=== PATIENT | male | born 1950 | race African-American/Black ===

== ENCOUNTER 2016-10-05 14:31 | Emergency (ER) | payer MEDICARE, MEDICAID ==
[~2016-10-05] VITALS: Ht 182.9 cm; Wt 72.6 kg
[2016-10-05 14:40] VITALS: BP 130/80
[2016-10-05] MEDS ORDERED: Aspirin Baby 81mg ORAL ONE (14:45)
[2016-10-05] MEDS ORDERED: Nitroglycerin 2% oint pkt TOPIC ONE (14:45)
[2016-10-05] MEDS ORDERED: Famotidine 20 MG/ 2ML VIAL IVP ONE (14:45)
[2016-10-05] MEDS ORDERED: Morphine Sulfate 2mg/ml Inj IVP ONE (14:45)
--- NOTE | 2016-10-05 14:50 | Emergency Room Report ---
History of Present Illness General Chief Complaint: Chest Pain Source: Patient Present Illness [facility] The patient presents with chest pain and vomiting. The pain started half an hour before presentation. He's never had pain like this before. He ate something at [employer] and vomited. There is no blood. The pain was 9/10 initially but now is down to 7/10. The pain is epigastric radiates into his chest. He took a hydrocodone before coming in. He broke out in sweats when this began. Risk factors: No smoking, hypertension, diabetes. No fevers. No extrem pain, calf tenderness. Some dyspnea. No change in bowels. No dysuria. Allergies: Coded Allergies: No Known Allergies (Unverified , 10/05/16) Patient History Past Medical History: see triage record Past Surgical History: other - Prostate surgery Social History: Denies: alcohol use, smoking Social History Narrative from home Reviewed Nursing Documentation: PMH: Agreed, PSxH: Agreed Nursing Documentation-PMH Past Medical History: No History, Except For Review of Systems All Other Systems: negative except mentioned in HPI Physical Exam Vital Signs Date Time Temp Pulse Resp B/P Pulse Ox O2 Delivery O2 Flow Rate FiO2 10/05/16 14:37 95.7 69 23 147/81 100 Room Air Sp02 EP Interpretation: reviewed, normal General Appearance: GCS 15, moderate distress Head: normocephalic, atraumatic Eyes: bilateral eye PERRL, bilateral eye normal inspection ENT: moist mucus membranes Neck: supple Respiratory: lungs clear, normal breath sounds Cardiovascular #1: regular rate, rhythm, no edema Cardiovascular #2: 2+ radial (R) Gastrointestinal: normal inspection, non tender, no mass, non-distended, abnormal bowel sounds - decreased Musculoskeletal: back normal, gait/station normal, normal range of motion Neurologic: alert, oriented x3, grossly normal Psychiatric: anxious Skin: normal color, diaphoresis Procedures Critical Care Time Critical Care Time Total Critical Care Time: 30 min bedside evaluation and treatment excludes procedures (EKG). Reason for critical care: STEMI Possible complications: hypotension, hypertension, myocardial injury, shock, arrhythmias, metabolic acidosis, end organ damage. Interventions: aspirin, nitrates, morphine, and emergent transfer. Course: Patient initially presented with vomiting after eating at [employer]. An EKG was immediately ordered and showed a STEMI. [facility] and [facility] were contacted. Patient received aspirin, nitrates, and morphine. Unable to give metoprolol due to low HR. His pain was improved. He was accepted by [facility] after my direct discussion with the ED attending. [facility] Consultations: nursing staff, EMS, [facility] attending Performed by: Dr. Lobo Tolerated well condition = critical Medical Decision Making Diagnostic Impression: Primary Impression: Acute myocardial infarction Qualified Codes: I21.3 - ST elevation (STEMI) myocardial infarction of unspecified site Additional Impression: Vomiting Qualified Codes: R11.2 - Nausea with vomiting, unspecified ER Course The patient presents with epigastric and chest pain. He has no risk factors however by his age we need to consider possible acute myocardial infarction. His EKG is abnormal and therefore emergently sent to [facility] for reviewed by the room clerk. Patient was treated with aspirin nitrates and also morphine. Also given Pepcid and Zofran. [facility] accepts the patient Dr. Mata. Calling 911 for transfer. Patient improved. HR 52, unable to give metoprolol. No longer diaphoretic. Pain improved. Laboratory Tests Test 10/05/16 14:45 White Blood Count 4.2 K/UL (4.8-10.8) L Red Blood Count 4.93 M/UL (4.70-6.10) Hemoglobin 14.6 G/DL (14.2-18.0) Hematocrit 45.1 % (42.0-52.0) Mean Corpuscular Volume 92 FL (80-99) Mean Corpuscular Hemoglobin 29.5 PG (27.0-31.0) Mean Corpuscular Hemoglobin Concent 32.3 G/DL (32.0-36.0) Red Cell Distribution Width 13.1 % (11.6-14.8) Platelet Count 216 K/UL (150-450) Mean Platelet Volume 8.7 FL (6.5-10.1) Neutrophils (%) (Auto) % (45.0-75.0) Lymphocytes (%) (Auto) % (20.0-45.0) Monocytes (%) (Auto) % (1.0-10.0) Eosinophils (%) (Auto) % (0.0-3.0) Basophils (%) (Auto) % (0.0-2.0) Differential Total Cells Counted 100 Neutrophils % (Manual) 20 % (45-75) L Lymphocytes % (Manual) 66 % (20-45) H Monocytes % (Manual) 10 % (1-10) Eosinophils % (Manual) 3 % (0-3) Basophils % (Manual) 1 % (0-2) Band Neutrophils 0 % (0-8) Platelet Estimate Adequate Platelet Morphology Normal Red Blood Cell Morphology Normal Prothrombin Time 9.9 SEC (9.30-11.50) Prothrombin Time INR 1.0 (0.9-1.1) PTT 22 SEC (23-33) L Sodium Level 142 mEQ/L (135-145) Potassium Level 3.4 mEQ/L (3.4-4.9) Chloride Level 97 mEQ/L (98-107) L Carbon Dioxide Level 28 mEQ/L (20-30) Anion Gap 17 (5-15) H Blood Urea Nitrogen 16 mg/dL (7-23) Creatinine 1.2 mg/dL (0.7-1.2) Estimate Glomerular Filtration Rate > 60 mL/min (>60) Glucose Level 120 mg/dL (74-106) H Calcium Level 10.2 mg/dL (8.6-10.2) Total Bilirubin 0.3 mg/dL (0.0-1.2) Aspartate Amino Transferase (AST) 41 U/L (5-40) H Alanine Aminotransferase (ALT) 34 U/L (3-41) Alkaline Phosphatase 64 U/L (40-129) Total Creatine Kinase 370 U/L (38-174) H Troponin I < 0.30 ng/mL (<=0.30) Pro-B-Type Natriuretic Peptide 20 pg/mL (0-125) Total Protein 7.7 g/dL (6.6-8.7) Albumin 4.7 g/dL (3.5-5.2) Globulin 3.0 g/dL Albumin/Globulin Ratio 1.5 (1.0-2.7) EKG Diagnostic Results Rate: normal Rhythm: NSR ST Segments: other - ST elevation V2-6 ASA given to the pt in ED: Yes Rhythm Strip Diag. Results EP Interpretation: yes Rhythm: NSR, no PVC's, no ectopy Chest X-Ray Diagnostic Results EP Interpretation: Yes Findings: no consolidation, no effusion, no pneumothorax, no acute cardiopulmonary disease Number of Views: 1 Last Vital Signs Date Time Temp Pulse Resp B/P Pulse Ox O2 Delivery O2 Flow Rate FiO2 2/11/17 15:04 69 23 Room Air 10/05/16 15:04 95.7 147/81 100 Status: improved Disposition: XFER [facility] Condition: Serious Lalo Lobo M.D. Oct 05, 2016 14:50
[2016-10-05 14:56] LABS: MEAN CORPUSCULAR HEMOGLOBIN 29.5 PG (27.0-31.0); MEAN CORPUSCULAR HGB CONC 32.3 G/DL (32.0-36.0); MEAN CORPUSCULAR VOLUME 92 FL (80-99); MEAN PLATELET VOLUME 8.7 FL (6.5-10.1); PLATELET COUNT 216 K/UL (150-450); RED BLOOD COUNT 4.93 M/UL (4.70-6.10); RED CELL DISTRIBUTION WIDTH 13.1 % (11.6-14.8); WHITE BLOOD COUNT 4.2 K/UL (4.8-10.8)
[2016-10-05 15:00] VITALS: BP 140/90
[2016-10-05 15:04] VITALS: BP 147/81
[2016-10-05 15:08] LABS: PROTHROMBIN TIME 9.9 SEC (9.30-11.50)
[2016-10-05 15:12] LABS: TROPONIN I < 0.30 ng/mL (<=0.30)
[2016-10-05 15:14] LABS: ALANINE AMINOTRANSFERASE 34 U/L (3-41); ALBUMIN/GLOBULIN RATIO 1.5 (1.0-2.7); ANION GAP 17 (5-15); ASPARTATE AMINO TRANSFERASE 41 U/L (5-40); CALCIUM 10.2 mg/dL (8.6-10.2); CARBON DIOXIDE 28 mEQ/L (20-30); CHLORIDE 97 mEQ/L (98-107); CREATININE 1.2 mg/dL (0.7-1.2); GLOMERULAR FILTRATION RATE > 60 mL/min (>60); HEMOLYSIS 4; POTASSIUM 3.4 mEQ/L (3.4-4.9); SODIUM 142 mEQ/L (135-145); TOTAL PROTEIN 7.7 g/dL (6.6-8.7)
[2016-10-05 15:20] VITALS: BP 140/70
[2016-10-05 15:55] LABS: BASOPHILS % (MANUAL) 1 % (0-2); EOSINOPHILS % (MANUAL) 3 % (0-3); LYMPHOCYTES % (MANUAL) 66 % (20-45); NEUTROPHILS % (MANUAL) 20 % (45-75); TOTAL CELLS COUNTED 100
[2016-10-05 15:56] LABS: BAND NEUTROPHILS % (MANUAL) 0 % (0-8); PLATELET ESTIMATE ADEQUATE; PLATELET MORPHOLOGY NORMAL
--- NOTE | 2016-10-06 21:13 | Cardiology Report ---
APPROVED REPORT EKG Measurement Heart [id number] IL [id number] [id number] Sinus rhythm with premature atrial complexes Moderate voltage criteria for LVH, may be normal variant ST elevation, consider early repolarization, pericarditis, or injury Abnormal ECG
--- NOTE | 2016-10-07 11:03 | Diagnostic Imaging Report ---
Clinical history: Acute chest pain. Technique: Portable AP chest radiograph was obtained. Comparison: None Findings: Mild ill-defined densities in the lower lungs may represent atelectasis or scarring. There is no pneumonia or pulmonary edema. There is no pleural effusion or pneumothorax. The cardiac and mediastinal silhouettes are normal in appearance. The bony thorax is unremarkable. Impression: Suspected mild basilar atelectasis or scarring. No radiographic evidence of acute cardiopulmonary process.
== END 2016-10-05 15:21 | disposition short-term general hospital (02) ==
LOC: EMR 14:55
DX: I21.29 ST elevation (STEMI) myocardial infarction involving other sites (principal); R11.10 Vomiting, unspecified
CPT/HCPCS: 36415; 71010; 80053; 82550; 83880; 84484; 85007; 85025; 85610; 85730; 93005; 96374; 96375; 99291; J2270; J2405; S0028

== ENCOUNTER 2019-04-03 04:37 | Inpatient (IN) | payer OTHER, MEDICAID ==
[2019-04-03] VITALS (19 sets, daily range): BP systolic 102–166; BP diastolic 62–98
[~2019-04-03] VITALS: Ht 180.3 cm; Wt 68.5 kg
--- NOTE | 2019-04-03 04:33 | NUR ---
ED Nurse Note: pt biba R 68 via daniel for C/O CP 8/10 and headache. bp 164/90, hr 98, r 22, t 98.3. pt is alert x4.
[2019-04-03] MEDS ORDERED: Morphine Sulfate 4mg/ml Inj (IV USE ONLY) IVP ONE ×2 (04:45→06:15)
--- NOTE | 2019-04-03 04:52 | Emergency Room Report ---
History of Present Illness General Chief Complaint: Chest Pain Source: Patient Present Illness [facility] Patient presents with complaints of chest pain left midsternal onset 11:00 at night Patient reports that he was walking Outside when he started feeling the pain and presents by paramedics Has very minimal relief after nitroglycerin by paramedics Denies any vomiting or diarrhea denies any fevers or chills denies any change with position or exertion on review of medical records patient was here in 2017 Appears to have been transferred to [facility] Patient reports that there was no intervention performed At that facility Allergies: Coded Allergies: No Known Allergies (Unverified , 10/05/16) Patient History Past Medical History: see triage record Pertinent Family History: none Reviewed Nursing Documentation: PMH: Agreed; PSxH: Agreed Nursing Documentation-PMH Past Medical History: No Stated History Review of Systems All Other Systems: negative except mentioned in HPI Physical Exam Vital Signs Date Time Temp Pulse Resp B/P (MAP) Pulse Ox O2 Delivery O2 Flow Rate FiO2 04/03/19 04:28 98.6 60 18 168/93 (118) 98 Room Air 04/03/19 04:38 99 Sp02 EP Interpretation: reviewed, normal General Appearance: well appearing, mild distress - In acute pain Head: normocephalic, atraumatic Eyes: bilateral eye PERRL, bilateral eye EOMI ENT: hearing grossly normal, normal pharynx, TMs + canals normal, uvula midline Neck: full range of motion, supple, no meningismus, no bony tend Respiratory: lungs clear, normal breath sounds, no rhonchi, no respiratory distress, no retraction, no accessory muscle use Cardiovascular #1: normal peripheral pulses, regular rate, rhythm, no edema, no gallop, no JVD, no murmur Gastrointestinal: normal bowel sounds, non tender, soft, no mass, no organomegaly, non-distended, no guarding, no hernia, no pulsatile mass, no rebound Genitourinary: no CVA tenderness Musculoskeletal: normal inspection Neurologic: oriented x3, responsive, sign erector and repairer III-XII nml as tested, motor strength/ tone normal, sensory intact Psychiatric: mood/affect normal Skin: no rash Lymphatic: normal inspection, no adenopathy Medical Decision Making Diagnostic Impression: Primary Impression: ACS (acute coronary syndrome) ER Course Patient is a fairly complex patient with multiple differential to consideration including but not limited to cardiac cardiopulmonary and vascular emergencies EKG Diagnostic Results Rate: normal Rhythm: NSR ST Segments: other - Nonspecific ST changes LVH, EKG compared to 2017 looks very similar Rhythm Strip Diag. Results EP Interpretation: yes Rate: 60 Rhythm: NSR, no PVC's, no ectopy Last Vital Signs Date Time Temp Pulse Resp B/P (MAP) Pulse Ox O2 Delivery O2 Flow Rate FiO2 04/03/19 04:38 55 25 Room Air 99 04/03/19 04:38 98.6 166/83 98 Status: improved Disposition: ADMITTED INPATIENT Condition: Serious Kelton Pineda DO Apr 03, 2019 04:52
--- NOTE | 2019-04-03 04:57 | NUR ---
ED Nurse Note: all due meds given, pt states pain 5/10 after morphine, BP 166/83. p 54, rr 18, sp02 100% in RA.
[2019-04-03 05:21] LABS: BASOPHILS % (AUTO) 1.4 % (0.0-2.0); EOSINOPHILS % (AUTO) 4.6 % (0.0-3.0); HEMATOCRIT 46.3 % (42.0-52.0); HEMOGLOBIN 14.9 G/DL (14.2-18.0); LYMPHOCYTES % (AUTO) 29.7 % (20.0-45.0); MEAN CORPUSCULAR VOLUME 93 FL (80-99); MONOCYTES % (AUTO) 7.9 % (1.0-10.0); NEUTROPHILS % (AUTO) 56.4 % (45.0-75.0); PLATELET COUNT 169 K/UL (150-450); RED BLOOD COUNT 4.96 M/UL (4.70-6.10); RED CELL DISTRIBUTION WIDTH 12.6 % (11.6-14.8); WHITE BLOOD COUNT 3.6 K/UL (4.8-10.8)
[2019-04-03 05:35] LABS: INR 0.9 (0.9-1.1)
--- NOTE | 2019-04-03 05:44 | Diagnostic Imaging Report ---
EXAM: XR Chest, 1 View CLINICAL HISTORY: CP TECHNIQUE: Frontal view of the chest. COMPARISON: 10/05/2016 FINDINGS: Lungs: Unremarkable. No consolidation. Pleural space: Unremarkable. No pneumothorax. Heart: Unremarkable. No cardiomegaly. Mediastinum: Unremarkable. Bones/joints: Unremarkable. IMPRESSION: Normal chest x-ray.
[2019-04-03] MEDS ORDERED: Heparin 5000 units/ml inj IV ONE (05:45)
[2019-04-03] MEDS ORDERED: Heparin 25,000u/D5W 500ml 500 ML IV SCH ×3 (05:45→09:06)
[2019-04-03 05:46] LABS: ALANINE AMINOTRANSFERASE 53 U/L (12-78); ALBUMIN 4.1 G/DL (3.4-5.0); ALBUMIN/GLOBULIN RATIO 1.1 (1.0-2.7); ALKALINE PHOSPHATASE 88 U/L (46-116); ANION GAP 2 mmol/L (5-15); ASPARTATE AMINO TRANSFERASE 53 U/L (15-37); BILIRUBIN,TOTAL 0.3 MG/DL (0.2-1.0); BLOOD UREA NITROGEN 14 mg/dL (7-18); CALCIUM 9.6 MG/DL (8.5-10.1); CARBON DIOXIDE 34 MMOL/L (21-32); CHLORIDE 103 MMOL/L (98-107); CKMB 9.5 NG/ML (0.0-3.6); CREATINE KINASE 306 U/L (26-308); CREATININE 1.3 MG/DL (0.55-1.30); POTASSIUM 4.3 MMOL/L (3.5-5.1); SODIUM 138 MMOL/L (136-145)
[2019-04-03] MEDS ORDERED: CYCLOBENZAPRINE10 MG ORAL (06:15)
[2019-04-03] MEDS ORDERED: Nitroglycerin 2% oint pkt TOPIC ONE (06:30)
--- NOTE | 2019-04-03 06:45 | NUR ---
ED Nurse Note: pt was brought up to ICU (246-C) accompanied by RN and analytical laboratory technician via gurprashant in stable condition. Report given to SHALINI stewart. Belonging list signed.
--- NOTE | 2019-04-03 06:50 | NUR ---
NURSE NOTES: Admitting pt from ER to ICU with dx of chest pain, elevate troponin. Report given by SHALINI Spencer. Pt's AOx4, in no acute distress at this time. Denies chest pain at this time, Nitro cream applied on right upper chest. On 2L/NC O2 sat 100%. 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 R 24. Pt's continent bladder and bowel. Noted Left AC 20G, and Left FA 20G, running Heparin at 12 units/kg/hr started at 06:10, also had 5000 units bolus at the same time. Call light within reach. Bed in low and locked position. HOB kept elevated. Will continue to monitor.
--- NOTE | 2019-04-03 07:30 | NUR ---
NURSE NOTES: Received the patient from SHALINI Wu. Patient is awake, alert and oriented x4, resting in bed. Denies chest pain or SOB. On 2L O2 via NC, O2 sat 100%. Breathing even and unlabored. SB HR 40s to SR noted on the manager monitoring. Patient kept NPO. Left AC 20G and left forearm 20G intact, asymptomatic, running heparin gtt at 12units/kg/hr. No s/sx of bleeding noted. Bed in lowest position, locked, side rails upx2. Call light within reach. Will continue to monitor.
--- NOTE | 2019-04-03 07:45 | NUR ---
NURSE NOTES: Contacted Dr. Castaneda for admitting orders. new orders noted and carried out.
[2019-04-03] MEDS ORDERED: Enalaprilat 2.5mg/2ml Inj IV PRN (08:00)
[2019-04-03] MEDS ORDERED: Morphine Sulfate 4mg/ml Inj (IV USE ONLY) IVP PRN (08:04)
[2019-04-03] MEDS ORDERED: NORCO 10-325 T1 EACH ORAL (08:13)
--- NOTE | 2019-04-03 09:00 | NUR ---
NURSE NOTES: Patient seen by Dr. Castaneda. No new orders at this time. keep the patient npo
--- NOTE | 2019-04-03 09:30 | NUR ---
NURSE NOTES: 2D echo completed.
[2019-04-03] MEDS: Cyclobenzaprine 10mg Tab ORAL SCH ×2 (09:41→18:19)
[2019-04-03] MEDS: D5NS 1,000 ML IV SCH (09:42)
--- NOTE | 2019-04-03 10:00 | NUR ---
NURSE NOTES: Dr. Paez at bedside to assess the patient. Okay to start diet.
[2019-04-03] MEDS ORDERED: Ipratropium 0.02% Inh Soln 2.5ml UD HHN PRN (10:15)
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
--- NOTE | 2019-04-03 12:00 | NUR ---
NURSE NOTES: Patient having lunch in bed. No acute distress noted. VSS. Denies SOB or CP.
[2019-04-03] MEDS ORDERED: Heparin 5000 units/ml inj IV SCH (12:26)
[2019-04-03] MEDS: Nitroglycerin 2% oint pkt TOPIC SCH ×2 (12:26→18:20)
[2019-04-03] MEDS: Heparin 25,000u/D5W 500ml 500 ML IV SCH (12:49)
--- NOTE | 2019-04-03 12:57 | History & Physical ---
History and Physical History & Physicial Seen and Examined. Dictation completed Beulah Castaneda MD Apr 03, 2019 12:57
--- NOTE | 2019-04-03 14:00 | NUR ---
NURSE NOTES: Patient asleep, easily arousable. Heparin gtt running at 14unit/kg/hr. No s/sx of bleeding noted.
--- NOTE | 2019-04-03 14:15 | NUR ---
NURSE NOTES: Patient seen by Dr. Watkins. Stat VD and VQ scan ordered. NM department made aware of stat order.
--- NOTE | 2019-04-03 14:45 | NUR ---
NURSE NOTES: Called Dr. Paez regarding elevated trop level, left a message.
--- NOTE | 2019-04-03 16:00 | NUR ---
NURSE NOTES: patient information forwarded to casework supervisor, Emy, for possible transfer.
--- NOTE | 2019-04-03 16:50 | NUR ---
NURSE NOTES: Patient off the unit for VQ scan, on a wearing apparel presser. VSS.
--- NOTE | 2019-04-03 18:15 | NUR ---
NURSE NOTES: patient back in pt's room. VQ scan completed. patient tolerated well. VSS. patient resting in bed comfortably. on 2L O2 via NC.
--- NOTE | 2019-04-03 19:12 | NUR ---
HAND-OFF: Report given to SHALINI Morgan. Addendum: 04/03/19 at 1916 by SURAJ JASSO RN endorsed to follow with Dr. Paez regarding elevated trop level.
--- NOTE | 2019-04-03 19:30 | NUR ---
NURSE NOTES: Received pt in no acute distress, AAOX4; currently denies any Chest pains, denies SOB. Pt had just finished eating dinner, consumed 100%. No edema, pulses strong and equal, NSR on the monitor, BP stable, afebrile. PIV site on LFA patent; Heparin gtt continues at 14units/kg/h. Awaiting results of VQ scan, PTT. Called Dr Paez re; Troponin of 2.768 from 1400H draw. Awaiting response.Will continue to monitor
--- NOTE | 2019-04-03 19:49 | Diagnostic Imaging Report ---
EXAM: NM Lung Perfusion and Ventilation Scan CLINICAL HISTORY: CP TECHNIQUE: Nuclear Medicine ventilation and perfusion images of the lungs were obtained in multiple projections following radiopharmaceutical inhalation followed by injection of Tc99m MAA. COMPARISON: No relevant prior studies available. FINDINGS: Ventilation: Unremarkable. No ventilation defects. Perfusion: Unremarkable. No perfusion defects. IMPRESSION: No findings to suggest pulmonary embolism.
--- NOTE | 2019-04-03 20:00 | NUR ---
NURSE NOTES: PTT 78, no change in current Heparin dose; ordered next PTT @ 0400 04/04. Vascular chemical processing laborer here and doing duplex studies of BLE. VQ scan reports negative findings.
--- NOTE | 2019-04-03 21:27 | Diagnostic Imaging Report ---
EXAM: US Duplex Bilateral Lower Extremity Veins CLINICAL HISTORY: THROM TECHNIQUE: Real-time duplex ultrasound scan of the bilateral lower extremity veins integrating B-mode two-dimensional vascular structure, Doppler spectral analysis, color flow Doppler imaging and compression. COMPARISON: No relevant prior studies available. FINDINGS: Right deep veins: No DVT in the right common femoral, femoral, proximal deep femoral or popliteal veins. The veins demonstrate normal color flow, are normally compressible, with normal phasic flow and/or augmentation response. Right superficial veins: No thrombus in the visualized right great saphenous vein. Left deep veins: No DVT in the left common femoral, femoral, proximal deep femoral or popliteal veins. The veins demonstrate normal color flow, are normally compressible, with normal phasic flow and/or augmentation response. Left superficial veins: No thrombus in the visualized left great saphenous vein. Soft tissues: No popliteal cyst. IMPRESSION: No DVT bilaterally.
--- NOTE | 2019-04-03 22:00 | NUR ---
NURSE NOTES: Dr Paez called and gave orders to satrt pt on Coreg 3.125po q 12h, 1st dose to be given now. Lab reported Troponin of 3.020. Ordered a repeat troponin in AM
--- NOTE | 2019-04-03 23:00 | NUR ---
NURSE NOTES: c/o difficulty urinating. Bladder scanned, 387mls urine in the bladder. Assisted pt to stand up on the side of the bed to void. Able to pass urine, 400mls.
[2019-04-04] VITALS (17 sets, daily range): BP systolic 103–134; BP diastolic 63–82
--- NOTE | 2019-04-04 | History and Physical Report ---
DATE OF ADMISSION: 04/03/2019 SOURCE OF INFORMATION: The patient and EMR. HISTORY OF PRESENT ILLNESS: The patient is a pleasant 68-year-old male with an unremarkable history of cardiovascular disease. The patient presented with worsening of the chest pain radiation to the left shoulder. The patient denies any loss of consciousness. The patient reported that the pain is constant. The patient denies any lightheadedness. Denies any diarrhea, constipation, or nausea. REVIEW OF SYSTEMS: All 12 elements of review of systems reviewed. Pertinent positives and negatives as above. ALLERGIES: NKDA. SOCIAL HISTORY: Positive for tobacco use. There is no history of illicit drug abuse. The patient reportedly lives with a family friend. CURRENT MEDICATIONS: Morphine, [place], Vasotec, and aspirin. PAST SURGICAL HISTORY: Denies any major history. IMAGING: Chest x-ray dated 04/03/2019 is normal. LABORATORY DATA: Dated 04/03/2019 showed WBC 3.6, hemoglobin 14.9, and platelets 169,000. Sodium 138, BUN 14. AST of 33. Troponin of 0.7. Serum toxicology is positive for opiates and cocaine. PHYSICAL EXAMINATION: VITAL SIGNS: Blood pressure 170/80, temperature 98.2, pulse oximetry 98% on room, respiratory rate 18, and pulse rate of 50-60. HEAD AND NECK: Atraumatic and normocephalic. CHEST: Clear to auscultation. HEART: S1 and S2. Regular rate and rhythm. ABDOMEN: Soft. No organomegaly. MUSCULOSKELETAL: No gross focal motor deficit. NEUROLOGY: Awake, alert, and oriented x3. ASSESSMENT: 1. Non-ST myocardial infarction. 2. Polysubstance abuse. 3. Abnormal LFT. 4. GI and DVT prophylaxis. PLAN OF CARE: I will check for the liver function tests. I will check for the hepatitis panel. I agree with the current IV heparin treatment. Cardiology, Dr. Hendricks, is consulted. Pulmonary, Dr. Miller. Beulah Castaneda M.D. DR: EVANGELISTA JOB#: [id number] CC:
--- NOTE | 2019-04-04 01:00 | NUR ---
NURSE NOTES: Sleeping. VSS, no distress.
[2019-04-04] MEDS: D5NS 1,000 ML IV SCH ×3 (01:26→14:00)
--- NOTE | 2019-04-04 03:00 | NUR ---
NURSE NOTES: Voided via urinal. Denies chest pains, denies SOB. PIV sites intact. No bleeding noted; Heparin gtt continues at 14units/kg/h
--- NOTE | 2019-04-04 05:00 | NUR ---
NURSE NOTES: c/o severe low back pain 06/03. Pt grimacing, moaning, sweating. Denies chest pains. [place] 1 tab given po
[2019-04-04] MEDS: HYDROcodone/Acetamin 10/325 tab ORAL PRN ×3 (05:10→20:56)
[2019-04-04] MEDS: Heparin 25,000u/D5W 500ml 500 ML IV SCH (05:28)
[2019-04-04] MEDS: Nitroglycerin 2% oint pkt TOPIC SCH ×3 (05:30→18:08)
--- NOTE | 2019-04-04 05:40 | NUR ---
NURSE NOTES: Still no relief from [place]. Still c/o severe low back pain, spasms. Pt sweating and trashing on bed. Morphine 3 mg IVP given
--- NOTE | 2019-04-04 06:13 | NUR ---
NURSE NOTES: Pt's pain level 3/10 post Morphine. Denies chest pains. BP stable, NSR. Heparin gtt still at 14units/kg/h. Awaiting PTT result
[2019-04-04 06:37] LABS: BASOPHILS % (AUTO) 1.2 % (0.0-2.0); EOSINOPHILS % (AUTO) 5.9 % (0.0-3.0); HEMATOCRIT 41.2 % (42.0-52.0); HEMOGLOBIN 13.3 G/DL (14.2-18.0); MEAN CORPUSCULAR VOLUME 93 FL (80-99); PLATELET COUNT 149 K/UL (150-450); RED BLOOD COUNT 4.42 M/UL (4.70-6.10); RED CELL DISTRIBUTION WIDTH 12.8 % (11.6-14.8); WHITE BLOOD COUNT 3.8 K/UL (4.8-10.8)
--- NOTE | 2019-04-04 07:03 | NUR ---
HAND-OFF: Report given to SHALINI Martin.
--- NOTE | 2019-04-04 07:20 | NUR ---
NURSE NOTES: Received the patient from SHALINI Morgan. Patient is awake, alert and oriented x4, resting in bed. Denies chest pain or SOB. On 2L O2 via NC, O2 sat 100%. Breathing even and unlabored. SR noted on the surveillance system monitor. BP 122/76. Left AC 20G and left forearm 20G intact, asymptomatic, running heparin gtt at 14 units/kg/hr. No s/sx of bleeding noted. Bed in lowest position, locked, side rails upx2. Call light within reach. Will continue to monitor.
[2019-04-04 07:43] LABS: ANION GAP 4 mmol/L (5-15); BLOOD UREA NITROGEN 11 mg/dL (7-18); CALCIUM 9.1 MG/DL (8.5-10.1); CARBON DIOXIDE 30 MMOL/L (21-32); CHLORIDE 106 MMOL/L (98-107); CHOLESTEROL 201 MG/DL (< 200); CREATININE 1.2 MG/DL (0.55-1.30); HDL CHOLESTEROL 65 MG/DL (40-60); POTASSIUM 3.5 MMOL/L (3.5-5.1); SODIUM 140 MMOL/L (136-145); TRIGLYCERIDES 89 MG/DL (30-150)
--- NOTE | 2019-04-04 08:10 | NUR ---
NURSE NOTES: Left a message to JAMES Manley regarding transfer, awaiting for call back.
[2019-04-04] MEDS: Cyclobenzaprine 10mg Tab ORAL SCH ×2 (08:29→18:08)
--- NOTE | 2019-04-04 08:30 | NUR ---
NURSE NOTES: Spoke with JAMES Manley working on pt's transfer.
[2019-04-04] MEDS ORDERED: Aspirin Baby 81mg ORAL SCH (09:00)
--- NOTE | 2019-04-04 09:23 | NUR ---
NURSE NOTES: Patient watching TV in bed. VSS. no acute distress noted.
--- NOTE | 2019-04-04 10:00 | NUR ---
NURSE NOTES: Per JAMES, a nurse to call to nursing station regarding transferring for a cardiac cath. reference #[id number]
--- NOTE | 2019-04-04 11:15 | NUR ---
NURSE NOTES: EKG performed, filed in pt's chart.
--- NOTE | 2019-04-04 12:56 | NUR ---
NURSE NOTES: Patient is awake, resting in bed comfortably. No c/o pain or SOB at this time. VSS. On 2L O2 via NC.
--- NOTE | 2019-04-04 14:15 | NUR ---
NURSE NOTES: Dr. Paez at bedside to assess the patient. Notified MD that CM working on transfer, pending. MD made aware of EKG result. Okay to transfer the patient to tele.
[2019-04-04] MEDS ORDERED: D5NS 1000ml IV ONE (15:17)
--- NOTE | 2019-04-04 15:25 | NUR ---
TRANSFER TO FLOOR: Patient transferred to [facility]. Report given to SHALINI Rodriguez. Belongings given to primary nurse.
--- NOTE | 2019-04-04 15:28 | NUR ---
NURSE NOTES: Received transfer from ICU and got bedside report from Maritza Cook RN. Pt. in bed, awake, a/o x 4. No sign of distress noted. On O2 at 2LPM via NC. Denies pain at present. Pre-medicated with norco prior to transfer. Cont. on Heparin drip with rate 14u/kg/hr. No s/sx of bleeding noted. IV site at left AC #20g. and left FA #20g. in placed patent/intact. Pleasant and cooperative. Will cont. to monitor.
[2019-04-04] MEDS ORDERED: Heparin 25,000u/D5W 500ml 500 ML IV SCH (15:35)
[2019-04-04] MEDS ORDERED: Ipratropium 0.02% Inh Soln 2.5ml UD HHN PRN ×2 (16:00)
[2019-04-04] MEDS ORDERED: HYDROcodone/Acetamin 10/325 tab ORAL PRN (16:00)
[2019-04-04] MEDS ORDERED: Cyclobenzaprine 10mg Tab ORAL SCH (18:00)
[2019-04-04] MEDS ORDERED: Nitroglycerin 2% oint pkt TOPIC SCH (18:00)
--- NOTE | 2019-04-04 19:16 | General Progress Note ---
Assessment/Plan Assessment/Plan: S: I am doing ok O: Denies CP, SOB. seems comfortable PHYSICAL EXAMINATION:HEAD AND NECK: Atraumatic and normocephalic. CHEST: Clear to auscultation.HEART: S1 and S2. Regular rate and rhythm. ABDOMEN: Soft. No organomegaly.MUSCULOSKELETAL: No gross focal motor deficit. NEUROLOGY: Awake, alert, and oriented x3. Lab: dated April 04 reviwed Meds: reviewed and reconciled ASSESSMENT: 1. Non-ST myocardial infarction. 2. Polysubstance abuse. 3. Abnormal LFT. 4. Hyperlipidemia 4. GI and DVT prophylaxis. Plan; Current cardiology management Subjective Allergies: Coded Allergies: No Known Allergies (Unverified , 10/05/16) Objective Last 24 Hour Vital Signs Date Time Temp Pulse Resp B/P (MAP) Pulse Ox O2 Delivery O2 Flow Rate FiO2 04/04/19 18:08 124/68 04/04/19 16:00 Nasal Cannula 2.0 04/04/19 15:56 65 04/04/19 15:07 69 124/68 04/04/19 15:00 64 14 124/68 (86) 98 04/04/19 14:00 69 21 126/63 (84) 100 04/04/19 13:00 98.3 71 16 132/71 (91) 99 04/04/19 12:00 Nasal Cannula 2.0 04/04/19 12:00 72 04/04/19 12:00 63 16 128/82 (97) 99 04/04/19 11:09 126/75 04/04/19 11:00 60 13 126/75 (92) 99 04/04/19 10:00 64 14 127/72 (90) 99 04/04/19 09:00 69 15 132/65 (87) 100 04/04/19 08:28 75 134/73 04/04/19 08:00 98.4 75 15 134/73 (93) 99 04/04/19 08:00 Nasal Cannula 2.0 04/04/19 08:00 72 04/04/19 07:00 61 13 122/76 (91) 99 04/04/19 06:30 100 Nasal Cannula 2.0 28 04/04/19 06:30 61 16 98 Nasal Cannula 2.0 28 04/04/19 06:00 98.5 57 14 131/70 (90) 100 04/04/19 05:30 133/90 04/04/19 05:00 72 24 106/79 (88) 100 04/04/19 04:00 63 04/04/19 04:00 64 14 130/73 (92) 99 04/04/19 04:00 Nasal Cannula 2.0 04/04/19 03:00 67 18 132/69 (90) 99 04/04/19 02:00 75 25 114/77 (89) 99 04/04/19 01:00 64 13 103/66 (78) 98 04/04/19 00:00 Nasal Cannula 2.0 04/04/19 00:00 98.6 62 14 110/74 (86) 99 04/03/19 23:00 64 15 113/65 (81) 98 04/03/19 22:11 66 114/65 04/03/19 22:00 64 14 114/65 (81) 99 04/03/19 21:00 68 14 118/72 (87) 99 04/03/19 20:00 65 04/03/19 20:00 Nasal Cannula 2.0 04/03/19 20:00 98.4 73 13 115/67 (83) 99 Intake and Output 04/03/19 04/04/19 18:59 06:59 Intake Total 904.361 ml 2144.04 ml Output Total 760 ml 650 ml Balance 144.361 ml 1494.04 ml Intake Oral 120 ml 960 ml IV Total 784.361 ml 1184.04 ml Output Urine Total 760 ml 650 ml # Voids 1 Laboratory Tests 04/03/19 21:32: Troponin I 3.020H 04/04/19 06:00: Troponin I 2.207H, White Blood Count 3.8L, Red Blood Count 4.42L, Hemoglobin 13.3L, Hematocrit 41.2L, Mean Corpuscular Volume 93, Mean Corpuscular Hemoglobin 30.0, Mean Corpuscular Hemoglobin Concent 32.2, Red Cell Distribution Width 12.8, Platelet Count 149L, Mean Platelet Volume 7.4, Neutrophils (%) (Auto) 45.0, Lymphocytes (%) (Auto) 40.0, Monocytes (%) (Auto) 8.0, Eosinophils (%) (Auto) 5.9H, Basophils (%) (Auto) 1.2, Activated Partial Thromboplast Time 73H, Sodium Level 140, Potassium Level 3.5, Chloride Level 106 , Carbon Dioxide Level 30, Anion Gap 4L, Blood Urea Nitrogen 11, Creatinine 1.2 , Estimat Glomerular Filtration Rate > 60, Glucose Level 119H, Hemoglobin A1c 6.0, Calcium Level 9.1, Triglycerides Level 89, Cholesterol Level 201H, LDL Cholesterol 121H, HDL Cholesterol 65H, Cholesterol/HDL Ratio 3.1L, Thyroid Stimulating Hormone (TSH) 2.013 Height (Feet): 5 Height (Inches): 11.00 Weight (Pounds): 146 Beulah Castaneda MD Apr 04, 2019 19:16
--- NOTE | 2019-04-04 19:52 | NUR ---
HAND-OFF: Report given to Rafael LOYA. Pt. remain stable.
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
[2019-04-05] VITALS: BP 138/75
--- NOTE | 2019-04-05 03:30 | Progress Note ---
DATE: 04/04/2019 CARDIOLOGY PROGRESS NOTE SUBJECTIVE: The patient has no chest pain today. Troponin levels peaked above 3. EKG reviewed today revealed sinus rhythm with nonspecific T-wave changes. No change from admission. The patient was made aware of his positive cocaine screen. He denied use of cocaine yesterday; however, today, he admits to using the drug. OBJECTIVE: VITAL SIGNS: Blood pressure is somewhat labile at times. Heart rates in the 50s and 60s with sinus rhythm. LUNGS: Clear. CARDIAC: Regular. Normal S1 and S2 with a fourth heart sound. ABDOMEN: Soft. No edema. IMAGING: Echocardiogram revealed normal ejection fraction with mild concentric hypertrophy. IMPRESSION: 1. Acute [id number]-[id number] myocardial infarction, probably precipitated by cocaine and associated vasospasm. 2. Labile hypertension. 3. Diastolic dysfunction with compensated congestive heart failure. 4. Depression. 5. Sinus bradycardia. 6. Cocaine abuse. PLAN: 1. Continue nitrates. 2. Add calcium blockers. 3. Avoid beta-blockers. 4. Maintain full anticoagulation and anti-platelet therapy with aspirin. 5. Discharge planning to a higher level of care for coronary angiography. Antonella Harding JOB#: [id number] CC:
[2019-04-05 04:00] VITALS: BP 141/80
[2019-04-05] MEDS: HYDROcodone/Acetamin 10/325 tab ORAL PRN ×3 (05:13→23:37)
[2019-04-05] MEDS: Heparin 25,000u/D5W 500ml 500 ML IV SCH (05:44)
[2019-04-05] MEDS: Nitroglycerin 2% oint pkt TOPIC SCH ×3 (05:58→17:25)
--- NOTE | 2019-04-05 07:35 | NUR ---
HAND-OFF: Report given to SHALINI Thacker. Endorsed plan of care.
[2019-04-05 08:00] VITALS: BP 143/90
--- NOTE | 2019-04-05 08:18 | NUR ---
NURSE NOTES: Received patient momo Hall Rn. Patient AAOx4 eating his breakfast. No c/o pain or discomfort at this time. Heparin infusing @ 14 Units/kg/hr = 18.67 ml/hr via right wrist #20. No active bleeding noted. Patient PTT 66,therapeutic this am. No c/o pain or discomfort at this time. Will monitor patient.
[2019-04-05] MEDS: Cyclobenzaprine 10mg Tab ORAL SCH ×2 (08:30→17:25)
[2019-04-05] MEDS: Aspirin Baby 81mg ORAL SCH (08:30)
[2019-04-05] MEDS ORDERED: Aspirin Baby 81mg ORAL SCH (09:00)
--- NOTE | 2019-04-05 09:53 | NUR ---
*-* INSURANCE *-* ALL AVAILABLE CLINICALS HAVE BEEN FAXED TO: [employer] ATTN: ARNOLDO P:[phone] F: [phone] REF # [id number]
--- NOTE | 2019-04-05 10:34 | Consultation ---
History of Present Illness General Chief Complaint: Chest Pain Present Illness Allergies: Coded Allergies: No Known Allergies (Unverified , 10/05/16) Medication History Scheduled Cyclobenzaprine Hcl* (Flexeril*), 10 MG ORAL THREE TIMES A DAY, (Reported) Scheduled PRN Hydrocodone Bit/Acetaminophen 10-325* ([place] 10-325*), 1 TAB ORAL Q8HR PRN for For Pain, (Reported) Patient History Healthcare decision maker Resuscitation status Full Code Advanced Directive on File Physical Exam Last 24 Hour Vital Signs Date Time Temp Pulse Resp B/P (MAP) Pulse Ox O2 Delivery O2 Flow Rate FiO2 04/05/19 09:21 68 143/90 04/05/19 09:00 66 04/05/19 09:00 Nasal Cannula 2.0 04/05/19 08:00 97.9 68 20 143/90 (107) 99 04/05/19 06:50 96 Nasal Cannula 2.0 28 04/05/19 06:50 68 17 96 Nasal Cannula 2.0 28 04/05/19 05:58 146/87 04/05/19 04:00 64 04/05/19 04:00 97.3 64 20 141/80 (100) 99 04/05/19 00:00 98.0 61 20 138/75 (96) 99 04/05/19 00:00 61 04/04/19 21:32 98 Nasal Cannula 2.0 28 04/04/19 21:32 64 18 98 Nasal Cannula 2.0 28 04/04/19 20:00 97.0 60 20 132/67 (88) 98 04/04/19 20:00 60 04/04/19 18:08 124/68 04/04/19 16:00 Nasal Cannula 2.0 04/04/19 15:56 65 04/04/19 15:07 69 124/68 04/04/19 15:00 64 14 124/68 (86) 98 04/04/19 14:00 69 21 126/63 (84) 100 04/04/19 13:00 98.3 71 16 132/71 (91) 99 04/04/19 12:00 Nasal Cannula 2.0 04/04/19 12:00 72 04/04/19 12:00 63 16 128/82 (97) 99 04/04/19 11:09 126/75 04/04/19 11:00 60 13 126/75 (92) 99 Intake and Output 04/04/19 04/05/19 19:00 07:00 Intake Total 1325.36 ml 576 ml Output Total 1350 ml Balance -24.64 ml 576 ml Intake Oral 520 ml 450 ml IV Total 805.36 ml 126 ml Output Urine Total 1350 ml # Voids 6 4 Laboratory Tests Test 04/05/19 04:05 Activated Partial Thromboplast Time 66 SEC (23-33) H Height (Feet): 5 Height (Inches): 11.00 Weight (Pounds): 155 Medications Current Medications Medications (Trade) Dose Ordered Sig/Rio Route PRN Reason Start Time Stop Time Status Last Admin Dose Admin Acetaminophen (Tylenol) 650 mg Q4H PRN ORAL Mild Pain (Pain Scale 1-3) 04/04/19 16:00 05/03/19 07:59 Acetaminophen/ Hydrocodone Bitart ([place] 10/325) 1 tab Q8H PRN ORAL Moderate Breakthru Pain (5-7) 04/04/19 16:00 04/10/19 07:59 04/05/19 05:13 Amlodipine Besylate (Norvasc) 2.5 mg DAILY ORAL 04/05/19 09:00 05/04/19 14:29 04/05/19 09:21 Aspirin (ASA) 81 mg DAILY ORAL 04/05/19 09:00 05/04/19 08:59 04/05/19 08:30 Cyclobenzaprine HCl (Flexeril) 10 mg BID ORAL 04/04/19 18:00 05/03/19 08:59 04/05/19 08:30 Dextrose (Dextrose 50%) 25 ml Q30M PRN IV Hypoglycemia 04/04/19 16:00 05/03/19 07:59 Dextrose (Dextrose 50%) 50 ml Q30M PRN IV Hypoglycemia 04/04/19 16:00 05/03/19 07:59 Heparin Sodium/ Dextrose 500 ml @ 18.67 mls/ hr ADJUST PER PROTOCOL IV 04/05/19 05:45 05/05/19 05:44 04/05/19 05:44 Ipratropium [place] (Atrovent) 500 mcg Q4H PRN HHN Shortness of Breath 04/04/19 16:00 8/15/19 15:59 Nitroglycerin (Nitro-Bid) 1 inch TID@0600,1200,1800 TOPIC 04/04/19 18:00 05/03/19 11:59 04/05/19 05:58 Ondansetron HCl (Zofran) 4 mg Q6H PRN IVP Nausea & Vomiting 04/04/19 16:00 05/03/19 15:59 Pantoprazole (Protonix) 40 mg DAILY ORAL 04/05/19 09:00 05/03/19 08:59 04/05/19 08:30 Assessment/Plan Assessment/Plan: Hematology Consultation ALIYA DE ANDA: Aye Castaneda DOS: 04/05/19 RFC: Pancytopenia, anticoagulation management in this setting ID Called by Dr. Castaneda to see [facility], a pleasant 68y old male presents with complaints of chest pain left midsternal onset 11:00 at night Patient reports that he was walking Outside when he started feeling the pain and presents by paramedics Has very minimal relief after nitroglycerin by paramedics Denies any vomiting or diarrhea denies any fevers or chills denies any change with position or exertion on review of medical records patient was here in 2017 Patient reports that there was no intervention performed At [facility] [place], has been started on heparin gtt, as per Dr. Paez and at this time, managing his anticoagulation Hematology consulted for recs. Allergies: No Known Allergies (Unverified , 10/05/16) Patient History Past Medical History: see triage record Pertinent Family History: none Reviewed Nursing Documentation: PMH: Agreed; PSxH: Agreed Nursing Documentation-PMH Past Medical History: No Stated History Review of Systems: negative except mentioned in HPI Physical Exam Vital Signs reviewed Gen: well appearing, mild distress - In acute pain Head: normocephalic, atraumatic Respiratory: lungs clear, normal breath sounds, no rhonchi CV: normal peripheral pulses, rrr GI: normal bowel sounds, non tender, soft, no mass, no ogm : no CVA tenderness Musculoskeletal: normal inspection Neurologic: oriented x3, responsive, cyber security architect III-XII nml as tested, motor strength/ tone normal, sensory intact Labs: noted Imaging: noted Assessment and Recs: # Pancytopenia -- with decreased platelets all lines, do not have prior admission to compare his numbers --> did review 2017 numbers and no major changes are noted at the moment --> obtain a hepatitis and hiv panel, r/o infection --> us of the abdomen ordered r/o hsm and cirrhosis --> smear has been ordered r/o blasts/schistocytes --> neupogen and transfusion as needed, at this time hold off, may be necessary if cardiac procedure --> will monitor for significant changes, if any noted, will obtain a bone marrow biopsy --> ok to continue heparin gtt # Coagulopathy is due to heparin gtt --> continue as per cardiology, and titrate to goal --> continue at this time and pending potential cardiac procedure # STEMI -- r/o ACS (acute coronary syndrome) --> r/o acs, trop as per cards --> Rhythm: NSR --> as per cards recs # Hypertension not previously treated --> monitor closely, sbp goal <150 # Previous Prostatectomy Time of note does not necessarily correspond to time patient was seen GREATLY APPRECIATE CONSULTATION. Gomez English MD Apr 05, 2019 10:34
--- NOTE | 2019-04-05 10:34 | General Progress Note ---
Assessment/Plan Status: stable Assessment/Plan: S: I am doing ok O: Denies CP, SOB. seems comfortable PHYSICAL EXAMINATION:HEAD AND NECK: Atraumatic and normocephalic. CHEST: Clear to auscultation.HEART: S1 and S2. Regular rate and rhythm. ABDOMEN: Soft. No organomegaly.MUSCULOSKELETAL: No gross focal motor deficit. NEUROLOGY: Awake, alert, and oriented x3. Lab: dated April 04 reviwed Meds: reviewed and reconciled ASSESSMENT: 1. Non-ST myocardial infarction. 2. Polysubstance abuse. 3. Abnormal LFT. 4. Hyperlipidemia 4. GI and DVT prophylaxis. Plan; Current cardiology management Will Transfer to higher level of care for [facility], Per Dr Paez Subjective Allergies: Coded Allergies: No Known Allergies (Unverified , 10/05/16) Objective Last 24 Hour Vital Signs Date Time Temp Pulse Resp B/P (MAP) Pulse Ox O2 Delivery O2 Flow Rate FiO2 04/05/19 09:21 68 143/90 04/05/19 09:00 66 04/05/19 09:00 Nasal Cannula 2.0 04/05/19 08:00 97.9 68 20 143/90 (107) 99 04/05/19 06:50 96 Nasal Cannula 2.0 28 04/05/19 06:50 68 17 96 Nasal Cannula 2.0 28 04/05/19 05:58 146/87 04/05/19 04:00 64 04/05/19 04:00 97.3 64 20 141/80 (100) 99 04/05/19 00:00 98.0 61 20 138/75 (96) 99 04/05/19 00:00 61 04/04/19 21:32 98 Nasal Cannula 2.0 28 04/04/19 21:32 64 18 98 Nasal Cannula 2.0 28 04/04/19 20:00 97.0 60 20 132/67 (88) 98 04/04/19 20:00 60 04/04/19 18:08 124/68 04/04/19 16:00 Nasal Cannula 2.0 04/04/19 15:56 65 04/04/19 15:07 69 124/68 04/04/19 15:00 64 14 124/68 (86) 98 04/04/19 14:00 69 21 126/63 (84) 100 04/04/19 13:00 98.3 71 16 132/71 (91) 99 04/04/19 12:00 Nasal Cannula 2.0 04/04/19 12:00 72 04/04/19 12:00 63 16 128/82 (97) 99 04/04/19 11:09 126/75 04/04/19 11:00 60 13 126/75 (92) 99 Intake and Output 04/04/19 04/05/19 19:00 07:00 Intake Total 1325.36 ml 576 ml Output Total 1350 ml Balance -24.64 ml 576 ml Intake Oral 520 ml 450 ml IV Total 805.36 ml 126 ml Output Urine Total 1350 ml # Voids 6 4 Laboratory Tests 04/05/19 04:05: Activated Partial Thromboplast Time 66H Height (Feet): 5 Height (Inches): 11.00 Weight (Pounds): 155 Beulah Castaneda MD Apr 05, 2019 10:34
[2019-04-05 11:09] LABS: % IRON SATURATION 26 % (15-50); IRON 57 ug/dL (50-175); TOTAL IRON BINDING CAPACITY 217 ug/dL (250-450)
[2019-04-05 11:22] LABS: FERRITIN 165 NG/ML (8-388)
[2019-04-05 12:00] VITALS: BP 137/78
--- NOTE | 2019-04-05 13:18 | Cardiology Report ---
APPROVED REPORT EXAM: Two-dimensional and M-mode echocardiogram with Doppler and color Doppler. INDICATION Chest Pain M-Mode DIMENSIONS IVSd1.3 (0.7-1.1cm)Left Atrium (MM)2.3 (1.6-4.0cm) LVDd3.8 (3.5-5.6cm)Aortic Root3.2 (2.0-3.7cm) PWd1.1 (0.7-1.1cm)Aortic Cusp Exc.1.9 (1.5-2.0cm) IVSs1.1 cm LVDs2.3 (2.5-4.0cm) PWs1.1 cm Technically difficult study due to poor acoustical windows. Normal left ventricular chamber size, systolic function and wall motion to extent visualized. Left ventricular ejection fraction estimated to be 60-65%. No evidence of left ventricular hypertrophy. No evidence of pericardial effusion. All other cardiac chamber sizes are within normal limits. Aortic valve calcification with normal cusp excursion . Mildly thickened mitral valve leaflets with normal excursion. Mild mitral annulus and aortic root calcification. Pulmonic valve not well visualized. IVC at normal size with physiologic collapse. A color flow and spectral Doppler study was performed and revealed: Trace aortic insufficiency . Mitral diastolic velocities suggest reduced left ventricular relaxation c/w mild LV diastolic dysfunction (Grade I ) Trace mitral regurgitation. Trace tricuspid regurgitation. Tricuspid systolic velocities suggests peak right ventricular systolic pressure of 17mmHg.
[2019-04-05] MEDS ORDERED: Heparin 25,000u/D5W 500ml 500 ML IV SCH (15:35)
[2019-04-05 16:00] VITALS: BP 123/51
--- NOTE | 2019-04-05 16:00 | Diagnostic Imaging Report ---
Indication: Abdominal pain Technique: Grayscale and duplex Doppler imaging of the abdomen performed. Comparison: None Findings: The liver is unremarkable. Doppler interrogation of the main portal vein shows patency with hepatopedal, monophasic flow. There is no biliary ductal dilatation identified. Gallbladder is unremarkable. CBD is 4 mm. There demonstrated part of the pancreas, aorta and IVC show no definite abnormalities. Both kidneys appear unremarkable. There is no hydronephrosis. IMPRESSION: No acute findings identified.
--- NOTE | 2019-04-05 19:40 | NUR ---
NURSE NOTES: Received pt and report from SHALINI Thacker. Observed pt resting in bed with both eyes open and watching television. Pt is A/Ox4. court recording monitor is in placed, IV site intact, asymptomatic, and patent; currently running Heparin drip @ 14 units/kg/hr (rate: 18.67). No bleeding noted. Bed is in the lowest position and locked. Call light within reach. No signs/symptoms of acute distress noted at this time. Will continue plan of care.
--- NOTE | 2019-04-05 19:49 | NUR ---
HAND-OFF: Report given to Aggie Richardson.Patient stable at time of hand off. Plan of care endorsed.
[2019-04-05 20:00] VITALS: BP 126/80
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
[2019-04-06] VITALS: BP 125/82
--- NOTE | 2019-04-06 02:00 | Progress Note ---
DATE: 04/05/2019 CARDIOLOGY PROGRESS NOTE SUBJECTIVE: The patient's condition remains tenuous, but improved. No chest pain noted. He remains on anticoagulation and the combination of antianginal drugs. He is awaiting transfer for higher level of care. OBJECTIVE: VITAL SIGNS: Blood pressure 143/90, pulse 68, and respirations 18. LUNGS: Clear. CARDIAC: Regular rhythm and rate. Normal S1, S2 with a fourth heart sound. ABDOMEN: Soft. EXTREMITIES: No edema. LABORATORY DATA: Troponin is pending. IMPRESSION: 1. Acute myocardial infarction. 2. Cocaine abuse. 3. Coronary vasospasm. 4. Hypertensive heart disease. 5. Hyperlipidemia. PLAN: 1. Continue current regimen. 2. Follow up laboratory studies. 3. Await transfer for cardiac catheterization. 4. Counseled regarding risks of cocaine abuse including sudden cardiac . Lalo Paez M.D. DR: GENARO JOB#: [id number] CC:
[2019-04-06 04:00] VITALS: BP 132/84
[2019-04-06 05:09] LABS: HEMATOCRIT 41.9 % (42.0-52.0); HEMOGLOBIN 13.7 G/DL (14.2-18.0); MEAN CORPUSCULAR VOLUME 92 FL (80-99); PLATELET COUNT 146 K/UL (150-450); RED BLOOD COUNT 4.55 M/UL (4.70-6.10); RED CELL DISTRIBUTION WIDTH 12.8 % (11.6-14.8); WHITE BLOOD COUNT 2.8 K/UL (4.8-10.8)
--- NOTE | 2019-04-06 05:46 | NUR ---
NURSE NOTES: PTT result this morning is 70. Contacted [facility] and spoke to Nupur regarding Heparin drip rate. Nupur said according to protocol, no change in Heparin drip rate and to order next PTT for 04/07 at 0400.
--- NOTE | 2019-04-06 05:56 | NUR ---
NURSE NOTES: Troponin trending down (1.190)
[2019-04-06] MEDS: Heparin 25,000u/D5W 500ml 500 ML IV SCH ×2 (06:08→09:03)
[2019-04-06] MEDS: Nitroglycerin 2% oint pkt TOPIC SCH ×3 (06:14→17:59)
--- NOTE | 2019-04-06 07:38 | NUR ---
NURSE NOTES: Received report from Debra LOYA. Pt AOX4 and eating his breakfast in bed. No co pain. No signs of acute distress noted. Denied chest pain. IV LAC 20G SL and Left hand 20G running with 18.67ml/hr of heparin drip and IV site intact and asymptomatic. Bed in lowest position and locked. Side rails x2 up for safety. Sinus rhythm noted on monitor. On room air and denied SOB. Will continue to plan of care.
--- NOTE | 2019-04-06 07:53 | NUR ---
HAND-OFF: Report given to SHALINI Sheffield.
[2019-04-06 08:00] VITALS: BP 136/79
[2019-04-06] MEDS: Aspirin Baby 81mg ORAL SCH (08:48)
[2019-04-06] MEDS: Cyclobenzaprine 10mg Tab ORAL SCH ×2 (08:48→17:59)
--- NOTE | 2019-04-06 09:57 | NUR ---
Social Work This SW received a consult due to substance abuse. This SW met with patient who remains alert/oriented x4, stating he lives with his sister, Brittni Martines ([phone]) who will transport patient to home upon discharge. Patient remains independent with ADLs, ambulation with cane. Patient admitted to cocaine abuse, prior to this admission, stating he wanted to take something for his pain. Patient explains he has not used any substances for the past 10 years, stating "I won't use it any more." This SW discussed the risks involved with substance and offered resources as needed. Patient declined drug counseling resources at this time. No the needs/concerns at this time.
[2019-04-06] MEDS: HYDROcodone/Acetamin 10/325 tab ORAL PRN ×2 (09:58→21:42)
[2019-04-06 12:00] VITALS: BP 138/78
--- NOTE | 2019-04-06 13:57 | NUR ---
*-* CASE MANAGEMENT NOTES *-* CALLED [facility] AT [phone] 1ST SPOKE TO JENIFFER WHOM STATED THEY ARE UNABLE TO SHARE [facility] PHONE NUMBER i WAS TRANFERED AND LEFT VOICEMAIL. CALLED BACK SPOKE TO MEHAMA CALL REF# [id number] REQUESTING TO SPEAK TO [facility] WHOM IS FOLLOWING THE PATIENT SHE SENT AN URGENT MESSAGE TO [facility] TO CONTACT [facility]. PATIENT NEED TO BE TRANFERRED TO A HIGHER LEVEL OF CARE
--- NOTE | 2019-04-06 14:15 | NUR ---
*-* INSURANCE *-* UPDATED CLINICALS HAVE BEEN FAXED TO: [facility] ATTN: ARNOLDO P:[phone] F: [phone] REF # [id number]
--- NOTE | 2019-04-06 14:35 | NUR ---
MECHANICAL DEVELOPMENT ENGINEER NOTES SPOKE WITH INDIO MENSAH FROM [facility], MADE AWARE OF PT REQUIRING TRANSFER TO CONTRACTED FACILITY FOR CARDIAC CATH. PER RODRICK NO PRIOR AUTHORIZATION NEEDED. OK FOR PT TO TRANSFER TO [facility]. MADE AWARE. RODRICK [phone] Addendum: 04/06/19 at 1604 by MAI SPENCER RN RN SPOKE WITH DEBBI SYBEHAVIORAL HEALTH CARE MANAGER AT [facility], MADE AWARE OF PT TO BE TRANSFERRED FOR CARDIAC CATH BY DR CUBA SCHEDULED FOR 0804/07/19. CLINICALS FAXED TO [phone]. NO TELE BED @ THIS TIME. POSSIBLE TRANSFER AFTER 1900. DEBBI [phone] Addendum: 04/06/19 at 1808 by MAI SPENCER RN RN SPOKE WITH DEBBI, NO BED ASSIGNMENT AT THIS TIME. MOST LIKELY TO HAPPEN AFTER 1900.PROVIDED DEBBI WITH UNIT PHONE NUMBER WHEN BED IS AVAILABLE. CHARGE NURSE MADE AWARE OF PT TO BE TRANSFERRED TO [facility]. NURSE EXERCISE EQUIPMENT REPAIR TECHNICIAN WILL CALL THE UNIT WHEN BED IS SECURED.
[2019-04-06 16:00] VITALS: BP 113/68
--- NOTE | 2019-04-06 16:14 | Hematology/Onc Progress Note ---
Assessment/Plan Assessment/Plan Assessment and Recs: # Pancytopenia -- with decreased platelets all lines, do not have prior admission to compare his numbers, hepatitis C++ on screening test --> did review 2017 numbers and no major changes are noted at the moment --> hiv is negative --> us of the abdomen ordered r/o hsm and cirrhosis --> SHOWS NONE --> smear has been ordered r/o blasts/schistocytes and none noted --> neupogen and transfusion as needed, at this time hold off, may be necessary if cardiac procedure --> will monitor for significant changes, if any noted, will obtain a bone marrow biopsy --> ok to continue heparin gtt as per pharmacy dose # Coagulopathy is due to heparin gtt --> continue as per cardiology, and titrate to goal --> continue at this time and pending potential cardiac procedure at [facility] # STEMI -- r/o ACS (acute coronary syndrome) --> r/o acs, trop as per cards --> Rhythm: NSR --> as per cards recs # Hypertension not previously treated --> monitor closely, sbp goal <150 # Previous Prostatectomy Time of note does not necessarily correspond to time patient was seen GREATLY APPRECIATE CONSULTATION. Subjective Constitutional: Denies: no symptoms, chills, fever, malaise, weakness, other HEENT: Denies: no symptoms, eye pain, blurred vision, tearing, double vision, ear pain, ear discharge, nose pain, nose congestion, throat pain, throat swelling, mouth pain, mouth swelling, other Cardiovascular: Denies: no symptoms, chest pain, edema, irregular heart rate, lightheadedness, palpitations, syncope, other Gastrointestinal/Abdominal: Denies: no symptoms, abdomen distended, abdominal pain, black stools, tarry stools, blood in stool, constipated, diarrhea, difficulty swallowing, nausea, poor appetite, poor fluid intake, rectal bleeding , vomiting, other Genitourinary: Denies: no symptoms, burning, discharge, frequency, flank pain, hematuria, incontinence, pain, urgency, other Neurologic/Psychiatric: Denies: no symptoms, anxiety, depressed, emotional problems, headache, numbness, paresthesia, pre-existing deficit, seizure, tingling, tremors, weakness, other Endocrine: Denies: no symptoms, excessive sweating, flushing, intolerance to cold, intolerance to heat, increased hunger, increased thirst, increased urine, unexplained weight gain, unexplained weight loss, other Allergies: Coded Allergies: No Known Allergies (Unverified , 10/05/16) Subjective 04/06: pending transfer to [facility] for potential cardiac cath, labs reviewed Objective Objective Current Medications Medications (Trade) Dose Ordered Sig/Rio Route PRN Reason Start Time Stop Time Status Last Admin Dose Admin Acetaminophen (Tylenol) 650 mg Q4H PRN ORAL Mild Pain (Pain Scale 1-3) 04/04/19 16:00 05/03/19 07:59 Acetaminophen/ Hydrocodone Bitart ([place] 10/325) 1 tab Q8H PRN ORAL Moderate Breakthru Pain (5-7) 04/04/19 16:00 04/10/19 07:59 04/06/19 09:58 Amlodipine Besylate (Norvasc) 2.5 mg DAILY ORAL 04/05/19 09:00 05/04/19 14:29 04/06/19 08:48 Aspirin (ASA) 81 mg DAILY ORAL 04/05/19 09:00 05/04/19 08:59 04/06/19 08:48 Cyclobenzaprine HCl (Flexeril) 10 mg BID ORAL 04/04/19 18:00 05/03/19 08:59 04/06/19 08:48 Dextrose (Dextrose 50%) 25 ml Q30M PRN IV Hypoglycemia 04/04/19 16:00 05/03/19 07:59 Dextrose (Dextrose 50%) 50 ml Q30M PRN IV Hypoglycemia 04/04/19 16:00 05/03/19 07:59 Heparin Sodium/ Dextrose 500 ml @ 18.67 mls/ hr ADJUST PER PROTOCOL IV 04/05/19 05:45 05/05/19 05:44 04/06/19 09:03 Ipratropium [place] (Atrovent) 500 mcg Q4H PRN HHN Shortness of Breath 04/04/19 16:00 04/08/19 15:59 Nitroglycerin (Nitro-Bid) 1 inch TID@0600,1200,1800 TOPIC 04/04/19 18:00 05/03/19 11:59 04/06/19 12:36 Ondansetron HCl (Zofran) 4 mg Q6H PRN IVP Nausea & Vomiting 04/04/19 16:00 05/03/19 15:59 Pantoprazole (Protonix) 40 mg DAILY ORAL 04/05/19 09:00 05/03/19 08:59 04/06/19 08:49 Last 24 Hour Vital Signs Date Time Temp Pulse Resp B/P (MAP) Pulse Ox O2 Delivery O2 Flow Rate FiO2 04/06/19 12:36 138/78 04/06/19 12:00 97.5 71 20 138/78 (98) 99 04/06/19 12:00 70 04/06/19 09:00 Room Air 04/06/19 08:48 80 136/79 04/06/19 08:00 73 04/06/19 08:00 97.7 80 20 136/79 (98) 99 04/06/19 07:00 69 16 99 Nasal Cannula 2.0 28 04/06/19 07:00 98 Nasal Cannula 2.0 28 04/06/19 06:14 130/79 04/06/19 04:00 97.1 67 19 132/84 (100) 96 04/06/19 03:41 69 04/06/19 00:00 97.4 76 18 125/82 (96) 100 04/05/19 23:24 75 04/05/19 21:00 Room Air 04/05/19 20:00 97.2 74 19 126/80 (95) 99 04/05/19 20:00 74 04/05/19 19:50 98 Nasal Cannula 2.0 28 04/05/19 19:50 74 18 98 Nasal Cannula 2.0 28 04/05/19 17:25 123/51 04/05/19 16:34 83 04/05/19 16:05 97.3 04/05/19 16:00 97.3 72 20 123/51 (75) 100 04/05/19 12:00 98.3 70 20 137/78 (97) 99 04/05/19 12:00 63 04/05/19 11:56 143/90 04/05/19 09:21 68 143/90 04/05/19 09:00 66 04/05/19 09:00 Nasal Cannula 2.0 04/05/19 08:00 97.9 68 20 143/90 (107) 99 04/05/19 06:50 96 Nasal Cannula 2.0 28 04/05/19 06:50 68 17 96 Nasal Cannula 2.0 28 04/05/19 05:58 146/87 04/05/19 04:00 64 04/05/19 04:00 97.3 64 20 141/80 (100) 99 04/05/19 00:00 98.0 61 20 138/75 (96) 99 04/05/19 00:00 61 04/04/19 21:32 98 Nasal Cannula 2.0 28 04/04/19 21:32 64 18 98 Nasal Cannula 2.0 28 04/04/19 20:00 97.0 60 20 132/67 (88) 98 04/04/19 20:00 60 04/04/19 18:08 124/68 Intake and Output 04/05/19 04/06/19 19:00 07:00 Intake Total 828.67 ml 205.37 ml Output Total 1700 ml 800 ml Balance -871.33 ml -594.63 ml Intake Oral 810 ml IV Total 18.67 ml 205.37 ml Output Urine Total 1700 ml 800 ml # Voids 3 Labs Test 04/03/19 18:30 04/03/19 21:32 04/04/19 06:00 04/05/19 04:05 Activated Partial Thromboplast Time 78 SEC (23-33) 73 SEC (23-33) 66 SEC (23-33) Troponin I 3.020 ng/mL (0.000-0.056) 2.207 ng/mL (0.000-0.056) White Blood Count 3.8 K/UL (4.8-10.8) Red Blood Count 4.42 M/UL (4.70-6.10) Hemoglobin 13.3 G/DL (14.2-18.0) Hematocrit 41.2 % (42.0-52.0) Mean Corpuscular Volume 93 FL (80-99) Mean Corpuscular Hemoglobin 30.0 PG (27.0-31.0) Mean Corpuscular Hemoglobin Concent 32.2 G/DL (32.0-36.0) Red Cell Distribution Width 12.8 % (11.6-14.8) Platelet Count 149 K/UL (150-450) Mean Platelet Volume 7.4 FL (6.5-10.1) Neutrophils (%) (Auto) 45.0 % (45.0-75.0) Lymphocytes (%) (Auto) 40.0 % (20.0-45.0) Monocytes (%) (Auto) 8.0 % (1.0-10.0) Eosinophils (%) (Auto) 5.9 % (0.0-3.0) Basophils (%) (Auto) 1.2 % (0.0-2.0) Sodium Level 140 MMOL/L (136-145) Potassium Level 3.5 MMOL/L (3.5-5.1) Chloride Level 106 MMOL/L (98-107) Carbon Dioxide Level 30 MMOL/L (21-32) Anion Gap 4 mmol/L (5-15) Blood Urea Nitrogen 11 mg/dL (7-18) Creatinine 1.2 MG/DL (0.55-1.30) Estimat Glomerular Filtration Rate > 60 mL/min (>60) Glucose Level 119 MG/DL (74-106) Hemoglobin A1c 6.0 % (4.3-6.0) Calcium Level 9.1 MG/DL (8.5-10.1) Triglycerides Level 89 MG/DL (30-150) Cholesterol Level 201 MG/DL (< 200) LDL Cholesterol 121 mg/dL (<100) HDL Cholesterol 65 MG/DL (40-60) Cholesterol/HDL Ratio 3.1 (3.3-4.4) Thyroid Stimulating Hormone (TSH) 2.013 uiU/mL (0.358-3.740) Iron Level 57 ug/dL (50-175) Total Iron Binding Capacity 217 ug/dL (250-450) Percent Iron Saturation 26 % (15-50) Unsaturated Iron Binding 160 ug/dL (112-346) Ferritin 165 NG/ML (8-388) Carcinoembryonic Antigen 4.0 ng/mL (0.0-4.7) Hepatitis A IgM Antibody Negative (Negative) Hepatitis B Surface Antigen Negative (Negative) Hepatitis B Core IgM Antibody Negative (Negative) Hepatitis C Antibody >11.0 s/co ratio HIV (1&2) Antibody Rapid Negative (NEGATIVE) Test 04/06/19 03:40 White Blood Count 2.8 K/UL (4.8-10.8) Red Blood Count 4.55 M/UL (4.70-6.10) Hemoglobin 13.7 G/DL (14.2-18.0) Hematocrit 41.9 % (42.0-52.0) Mean Corpuscular Volume 92 FL (80-99) Mean Corpuscular Hemoglobin 30.1 PG (27.0-31.0) Mean Corpuscular Hemoglobin Concent 32.6 G/DL (32.0-36.0) Red Cell Distribution Width 12.8 % (11.6-14.8) Platelet Count 146 K/UL (150-450) Mean Platelet Volume 7.3 FL (6.5-10.1) Neutrophils (%) (Auto) % (45.0-75.0) Lymphocytes (%) (Auto) % (20.0-45.0) Monocytes (%) (Auto) % (1.0-10.0) Eosinophils (%) (Auto) % (0.0-3.0) Basophils (%) (Auto) % (0.0-2.0) Activated Partial Thromboplast Time 70 SEC (23-33) Magnesium Level 1.9 MG/DL (1.8-2.4) Troponin I 1.190 ng/mL (0.000-0.056) Pro-B-Type Natriuretic Peptide 77 pg/mL (0-125) Height (Feet): 5 Height (Inches): 11.00 Weight (Pounds): 142 Objective Gen: well appearing, mild distress - In acute pain Head: normocephalic, atraumatic Respiratory: lungs clear, normal breath sounds, no rhonchi CV: normal peripheral pulses, rrr GI: normal bowel sounds, non tender, soft, no mass, no ogm : no CVA tenderness Musculoskeletal: normal inspection Neurologic: oriented x3, responsive, sales mgr III-XII nml as tested, motor strength/ tone normal, sensory intact Gomez English MD Apr 06, 2019 16:14
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
--- NOTE | 2019-04-06 19:50 | NUR ---
NURSE NOTES: Received pt and report from SHALINI Sheffield. Observed pt resting in bed with both eyes open and watching television. Pt is A/Ox4. phototypesetting equipment monitor is in placed, IV site intact, asymptomatic, and patent; currently running Heparin drip @ 14 units/kg/hr (rate: 18.67). No bleeding noted. Bed is in the lowest position and locked. Call light within reach. No signs/symptoms of acute distress noted at this time. Pt has cardiac cath procedure scheduled for tomorrow per Dr. Hendricks at [facility]. Central Office Associate, Emy spoke with front office supervisor at [facility] regarding transfer, but there are no tele bed available at this time. Once bed is available, [facility] will call. Will continue plan of care until pt is transferred.
[2019-04-06 20:00] VITALS: BP 117/75
--- NOTE | 2019-04-06 20:00 | NUR ---
HAND-OFF: Report given to Debra RN. Pt remains stable.
--- NOTE | 2019-04-06 22:01 | NUR ---
NURSE NOTES: Pt has cardiac cath procedure scheduled for tomorrow. Pt has been on Heparin drip. Contacted Dr. Hendricks regarding Heparin drip, Dr. Hendricks said to stop Heparin drip now.
[2019-04-07] VITALS: BP 110/70
--- NOTE | 2019-04-07 02:27 | NUR ---
NURSE NOTES: Still awaiting call from supervisor carbon electrodes at [facility]. Nurse state manager, Shaneka called and spoke to supervisor carbon electrodes, Andrew whom said to call back in 15 mins.
--- NOTE | 2019-04-07 02:45 | NUR ---
NURSE NOTES: Call back [facility] and spoke to the enrobing machine operator who said to call back again because the yard labor supervisor is currently dealing with a code blue. Will call back in half an hour.
--- NOTE | 2019-04-07 03:59 | NUR ---
NURSE NOTES: Fourth time contacting [facility] supervisor dental laboratory regarding bed for pt. Charged nurse, Shaneka spoke to supervisor dental laboratory at [facility], Andrew who said he will call us back. Gave Andrew direct Telemetry unit phone number. Will await call back.
[2019-04-07 04:00] VITALS: BP 108/50
--- NOTE | 2019-04-07 04:35 | NUR ---
NURSE NOTES: Pt will be assigned bed 216-B on telemetry unit at [facility]. Will contact [facility] for transfer.
--- NOTE | 2019-04-07 04:48 | NUR ---
NURSE NOTES: Charge nurse, Shaneka contacted [facility] regarding pt's transfer. [facility] personnel said they will arrive at 0700, but cannot arrive any sooner.
[2019-04-07] MEDS: Nitroglycerin 2% oint pkt TOPIC SCH (05:36)
--- NOTE | 2019-04-07 05:42 | NUR ---
NURSE NOTES: Contacted [facility] Telemetry unit and gave report to SHALINI Bhatti.
--- NOTE | 2019-04-07 06:29 | NUR ---
NURSE NOTES: Dr. Hendricks made aware that [facility] cannot come burr picker patient until 0800.
--- NOTE | 2019-04-07 07:52 | NUR ---
HAND-OFF: Report given to SHALINI Morales.
[2019-04-07 08:00] VITALS: BP 103/50
--- NOTE | 2019-04-07 09:00 | NUR ---
NURSE NOTES: REPORT GIVE TO AMBULANCE STAFF.OLIMPIA CHRISTIAN RN [facility] .PT LEFT THE HOSPITALN STABLE CONDITION.
--- NOTE | 2019-04-07 20:00 | Progress Note ---
DATE: 04/06/2019 CARDIOLOGY PROGRESS NOTE SUBJECTIVE: The patient is without chest pain. No shortness of breath. I have spoken extensively with case management. I have made them aware and asked them to transfer information to the insurance company regarding patient's acuity and need for higher level of care for cardiac catheterization in view of acute myocardial infarction and the prior setting of known coronary artery disease and the current setting of cocaine use. OBJECTIVE: VITAL SIGNS: Blood pressure 115/67, pulse 67, and respirations 18. LUNGS: Clear. CARDIAC: Regular. Normal S1, S2 with a fourth heart sound. ABDOMEN: Soft. EXTREMITIES: No edema. LABORATORY DATA: White count 2.8 and hemoglobin 13.7. Magnesium 1.9. Troponin is 1.19 down from 2.2 and a peak of over 3. IMPRESSION: 1. Acute myocardial infarction. 2. Coronary artery disease. 3. Cocaine abuse and intoxication. 4. Hypertensive heart disease. PLAN: 1. Maintain anti-platelet, anticoagulant, and anti-lipid therapy without change. 2. Continue nitrates and calcium blockers for coronary vasospasm in this setting. 3. Awaiting transfer for cardiac catheterization. 4. Dr. Hendricks will assume care at [facility] and has already secured a cardiac catheterization path at 8:30 a.m. tomorrow morning. Lalo Paez M.D. DR: GENARO JOB#: [id number] CC:
--- NOTE | 2019-04-08 08:36 | Discharge Summary ---
Discharge Summary Discharge Summary _ DATE OF ADMISSION: 04/03/2019 DATE OF DISCHARGE: 04/07/2019 DISCHARGED BY: Dr Castaneda REASON FOR ADMISSION: 68 years old male with past medical history of prostatectomy, hepatitis C, presented to emergency department with chest pain radiating to the left shoulder. Patient denied associated lightheadedness. He denied shortness of breath. He denied blackouts, loss of consciousness. He denied diarrhea constipation,, or nausea. Upon evaluation vital signs revealed elevated blood pressure 168/93. Laboratory work-up revealed leukopenia with WBC 3.6. Stable electrolytes. BUN 14, creatinine 1.3. Glucose 127. AST 53, ALT 53, alkaline phosphatase 88. Troponin 0.715. Total CK 306. CK-MB 9.5. Pro BNP 160. EKG reveals bradycardia with arrhythmia , with left ventricular hypertrophy and repolarization changes. In emergency department patient received aspirin and was admitted to ICU . CONSULTANTS: cubing machine tender pulmonary Dr. Watkins sap gatherer/oncologist Dr. English HOSPITAL COURSE: Patient admitted to ICU. Escrow Representative closely followed. Patient apparently was in the hospital in September 2016 with chest pain and was transferred to [facility] at that time due to abnormal EKG Initially he did not recall that, but when reminded, he stated that he did go to [facility] for cardiac catheterization and was told that he had minor blockage, that not required any further intervention at that time. Patient started on full anticoagulation with heparin drip and antiplatelet therapy with Aspirin. Topical nitrate provided. IV nitrates were on board if chest pressure recurs. Serial troponin were trended. Next troponin 2.768 , then 3.02 , and then started to trend down, prior to discharge troponin 1.19. Echocardiogram revealed preserved ejection fraction of 60 to 65% with no evidence of left ventricular hypertrophy. No evidence of wall motion abnormality. Right ventricular systolic pressure of 17. Venous duplex bilateral lower extremity revealed no evidence of acute DVT. VQ scan demonstrated no findings to suggest pulmonary embolism. Blood pressure was managed with calcium channel sangita. Pain management was addressed. Lipid panel revealed total cholesterol 201, LDL 121 . TSH within normal limits. Urine toxicology screen was positive for cocaine and THC. Escrow Representative recommended to avoid beta-sangita due to current cocaine use. Per cubing machine tender, patient required transfer to higher level of care for coronary angiogram. Supplemental oxygen titrated to keep pulse oximetry above 92%. GI prophylaxis provided. Hepatitis panel revealed evidence of elevated hepatitis C antibody. HIV test was nonreactive. Cytomegalovirus IgG antibody elevated 2.6 Dice Manager followed. Supplemental oxygen provided as needed to keep pulse oximetry above 92%. Bronchodilator therapy was on board as needed. Pulse oximetry was stable on room air. No evidence of respiratory distress. Real Estate Closer followed. Per sap gatherer, patient had pancytopenia . Abdominal ultrasound demonstrated no acute findings. Hepatitis panel was positive for hepatitis C. Placement was found and secured at [facility] for cardiac catheterization to follow-up with cubing machine tender Dr. Rousseau. Patient was transferred via [facility] ambulance. FINAL DIAGNOSES: Acute non-STEMI , probably precipitated by cocaine and associated vasospasm History of [id number] coronary artery disease Elevated blood pressure - improved Diastolic dysfunction with compensated congestive heart failure Cocaine abuse Depression Hypertensive heart disease Hyperlipidemia DISCHARGE MEDICATIONS: List of medication was sent to accepting facility. DISCHARGE INSTRUCTIONS: Patient was transferred to [facility] for cardiac catheterization. I have been assigned to dictate discharge summary for this account. I was not involved in the patient's management. Tanya Mac NP Apr 08, 2019 08:36
--- NOTE | 2019-04-08 16:11 | NUR ---
*-* INSURANCE *-* DISCHARGE SUMMARY HAS BEEN FAXED TO: [facility] ATTN: ARNOLDO P:[phone] F: [phone] REF # [id number]
== END 2019-04-07 09:30 | disposition short-term general hospital (02) | DRG 281 ==
LOC: EDBD 04:37 → EMR 05:00 → ICU 05:09 → EDBEDREQ 05:46 → EDBEDREQSVC 05:46 → EDBEDREQTM 05:46 → EDBEDREQ 06:13 → 2E 04-04 15:29
DX: I21.4 Non-ST elevation (NSTEMI) myocardial infarction (principal); I50.32 Chronic diastolic (congestive) heart failure; D61.818 Other pancytopenia; I11.0 Hypertensive heart disease with heart failure; F14.129 Cocaine abuse with intoxication, unspecified; F19.10 Other psychoactive substance abuse, uncomplicated; F32.9 Major depressive disorder, single episode, unspecified; E78.5 Hyperlipidemia, unspecified; Z90.79 Acquired absence of other genital organ(s); Z85.46 Personal history of malignant neoplasm of prostate; Z87.891 Personal history of nicotine dependence; I25.111 Atherosclerotic heart disease of native coronary artery with angina pectoris with documented spasm; R00.1 Bradycardia, unspecified
CPT/HCPCS: 36415; 71045; 76700; 78579; 78580; 80048; 80053; 80061; 80307; 82378; 82550; 82553; 82728; 83036; 83540; 83550; 83735; 83880; 84443; 84484; 85025; 85610; 85730; 86644; 86703; 86705; 86709; 86803; 87081; 87340; 93005; 93306; 93970; 94664; 96374; 96375; 96376; 99285; A9503; J2405; J8499